=== PATIENT | female | born 1995 | race Hispanic/Latino ===

== ENCOUNTER 2018-08-26 06:19 | Emergency (ER) | payer OTHER ==
[~2018-08-26] VITALS: Ht 157.5 cm; Wt 90.7 kg
[2018-08-26] MEDS ORDERED: BACTRIM DS TAB1 EACH PO (06:37)
[2018-08-26] MEDS ORDERED: KEFLEX500 MG PO (06:37)
== END 2018-08-26 06:46 | disposition home or self-care (01) ==
LOC: ER 06:19
DX: L02.415 Cutaneous abscess of right lower limb (principal)
CPT/HCPCS: 99282